=== PATIENT | male | born 1990 | race Caucasian/White ===

== ENCOUNTER 2016-06-02 21:23 | Emergency (ER) | payer MEDICAID ==
[~2016-06-02] VITALS: Ht 175.3 cm; Wt 68.0 kg
[2016-06-02] MEDS ORDERED: IBUPROFEN 400 MG TABLET PO ONE (23:00)
[2016-06-02] MEDS ORDERED: LOPERAMIDE HCL (2 MG CAP) 2 MG CAPSULE PO ONE ×2 (23:00→23:09)
[2016-06-02] MEDS ORDERED: ONDANSETRON 4 MG TAB.RAPDIS SL ONE (23:00)
[2016-06-02] MEDS ORDERED: IBUPROFEN 400 MG TABLET ONE (23:07)
[2016-06-02] MEDS ORDERED: ONDANSETRON 4 MG TAB.RAPDIS ONE (23:08)
[2016-06-02 23:29] LABS: HEMATOCRIT 35 % (39-51); HEMOGLOBIN 11.6 g/dL (13.5-17.5); MEAN CORPUSCULAR HEMOGLOBIN 26 PG (26.0-33.0); MEAN CORPUSCULAR HGB CONC 33 g/dl (31.0-36.0); MEAN CORPUSCULAR VOLUME 78 fL (80-96); PLATELET COUNT (AUTO) 316 /CMM (150-450); RED BLOOD CELL COUNT(AUTO) 4.54 MIL/uL (4.5-6.0); WHITE BLOOD COUNT (AUTO) 8.1 K/uL (4.3-11.0)
[2016-06-02 23:31] LABS: ANION GAP 14 (5-14); CALCIUM, SERUM 8.8 mg/dL (8.5-10.1); CARBON DIOXIDE 28 mmol/L (21-32); CHLORIDE 102 mmol/L (98-107); GFR 90 mL/min (>60); GLUCOSE 98 mg/dL (74-106); POTASSIUM 3.6 mmol/L (3.5-5.1); SODIUM SERUM 140 mmol/L (136-145); UREA NITROGEN, BLOOD 16 mg/dL (7-18)
[2016-06-02 23:37] LABS: ALANINE AMINOTRANSFERASE 60 U/L (12-78); ALBUMIN 3.3 g/dL (3.4-5.0); ASPARTATE AMINOTRANSFERASE 36 U/L (15-37); BILIRUBIN,TOTAL 0.1 mg/dL (0.2-1.0); TOTAL PROTEIN, SERUM 7.8 g/dL (6.4-8.2)
[2016-06-02 23:38] LABS: ACETAMINOPHEN 0 ug/ml (10-30); INDIRECT BILIRUBIN 0.1 mg/dL (0.0-1.1)
[2016-06-03 01:23] LABS: ANISOCYTOSIS 1+; BAND % (MANUAL) 3 % (0.0-5.0); BASOPHILS % (MANUAL) 0 % (0.0-2.0); EOSINOPHILS % (MANUAL) 3 % (0-4); LYMPHOCYTES % (MANUAL) 40 % (16-48); PLATELET ESTIMATE ADEQUATE
[2016-06-03 06:30] VITALS: BP 135/84
== END 2016-06-03 06:31 | disposition home or self-care (01) ==
LOC: ER 21:25
DX: F29 Unspecified psychosis not due to a substance or known physiological condition (principal); F31.9 Bipolar disorder, unspecified
CPT/HCPCS: 36415; 80048; 80076; 85025; 99284; A4606; G0480; G0481; G0482; Q0162; Z7610; G6038-TC; G6039-TC; G6040-TC